=== PATIENT | female | born 1960 | race Caucasian/White ===

== ENCOUNTER → 2017-10-10 07:09 | Outpatient (CLI) | payer OTHER, SELFPAY ==
--- NOTE | 2017-10-10 07:18 | MRI_ITS ---
STUDY: MRI BRAIN WITH AND WITHOUT CONTRAST (ATTENTION INTERNAL AUDITORY CANALS - I.A.C.'s) REASON FOR EXAM: Female, 56 years old. unilateral tinnitus left side x 1 yr, nki. TECHNIQUE: Standardized multiplanar fat and water weighted pulse sequences were obtained. 6 ml of Gadavist contrast material was administered intravenously for the contrast portion of the examination. COMPARISON: None. FINDINGS: Normal bilateral temporal bones. Normal bilateral internal auditory canals. There is no demonstrated intracanalicular or cisternal vestibular schwannoma (acoustic neuroma). There is no enhancement of the bilateral VIIth or VIIIth cranial nerves. Normal bilateral cochlea, vestibules and semicircular canals. Normal size of the ventricles and extra-axial spaces for the patient's age. Normal white matter tracts of the supratentorial brain. Normal bilateral basal ganglia. Normal thalami. Normal flow voids within the major intracranial circulation suggesting patency by spin echo criteria. Normal venous enhancement. There is no enhancing intra-axial or extra-axial abnormality. There is no extra-axial fluid accumulation. Normal sella turcica, pituitary gland, infundibular stalk, optic chiasm and hypothalamus. Normal tectal plate and pineal gland. Normal midbrain, marcela and medulla. Normal cerebellum. Normal basal cisterns. No demonstrated orbital abnormality, within the constraints of a routine brain study. Normal visualized paranasal sinuses. Normal calvarium and skull base. Normal visualized soft tissue structures. Normal visualized upper cervical spine. MRI/Brain W/WO Contrast IMPRESSION: Normal unenhanced and enhanced MRI of the bilateral internal auditory canals (I.A.C's). Electronically Signed: Deborah Jurado MD at 8:00 EDT Tel , Service support ,
== END ==
PROVIDERS: Family Provider Family Medicine; PCP Family Medicine; Visit Provider Otolaryngology
DX: H93.19 Tinnitus, unspecified ear (principal)
CPT/HCPCS: 70553; A9585

== ENCOUNTER → 2017-10-18 09:01 | Outpatient (CLI) | payer OTHER, SELFPAY ==
--- NOTE | 2017-10-18 09:04 | EKG12_ITS ---
Test Reason : PRE OP Blood Pressure : / mmHG Vent. Rate : 061 BPM Atrial Rate : 061 BPM P-R Int : 164 ms QRS Dur : 080 ms QT Int : 422 ms P-R-T Axes : 036 049 045 degrees QTc Int : 424 ms Normal sinus rhythm Normal ECG Confirmed by MOIZ PARMAR MD ([id number]), health editor BRYN RAYA ([id number]) on 10/19/2017 1:12:56 PM Referred By: ELENA Confirmed By:MOIZ PARMAR MD
== END ==
PROVIDERS: Family Provider Family Medicine; PCP Family Medicine; Visit Provider Surgery
DX: I87.2 Venous insufficiency (chronic) (peripheral) (principal); I83.12 Varicose veins of left lower extremity with inflammation; M79.662 Pain in left lower leg; Z01.810 Encounter for preprocedural cardiovascular examination
CPT/HCPCS: 93005

== ENCOUNTER → 2017-10-18 09:19 | Outpatient (CLI) | payer OTHER, SELFPAY ==
[2017-10-18 09:53] LABS: Absolute Lymphocyte Count 2.26 X10^3/ul (0.83-4.51); Absolute Neutrophil Count 2.3 X10^3/uL (2.0-7.7); Basophil# 0.02 X10^3/uL; Basophil% 0.4 % (0-1); Eosinophil# 0.24 X10^3/uL; Eosinophils% 4.5 % (0-5); Hemoglobin 14.6 g/dl (12.0-15.0); Lymphocyte # 2.26 X10^3/ul (4.0); Lymphocyte % 42.2 % (19-41); Mean Corp Hgb Conc 32.4 g/gl (32-36); Mean Corpuscular Hgb 31.1 pg (27.0-32.0); Mean Corpuscular Volume 95.7 fL (81-99); Mean Platelet Vol. 9.9 fl (6.2-12.0); Monocyte# 0.53 X10^3/uL; Monocyte% 9.9 % (0-10); Neutrophil % 42.8 % (47-70); Platelet Count 232 K/mm3 (150-450); RBC Distribution Width SD 41.1 fl (35.1-43.9); White Blood Count 5.4 K/mm3 (4.4-11.0)
[2017-10-18 10:00] LABS: POSITIVE COUNT NO; POSITIVE DIFFERENTIAL NO; POSITIVE MORPHOLOGY NO
[2017-10-18 10:27] LABS: Anion Gap 3 (5-15); BUN 13 mg/dL (7-18); BUN/Creat Ratio 17.2 RATIO (10-20); Calcium,Total 9.4 mg/dL (8.5-10.1); Chloride 105 mmol/L (98-107); Creatinine, Serum 0.75 mg/dL (0.55-1.02); EST Glomerular Filtration Rate 84 mL/min (>60); Est Glom Filt Rate - Afr Amer 102 mL/min (>60); Glucose 83 mg/dL (74-106); Potassium 3.9 mmol/L (3.5-5.1); Sodium Level 140 mmol/L (136-145)
== END ==
PROVIDERS: Family Provider Family Medicine; PCP Family Medicine; Visit Provider Surgery
DX: I87.2 Venous insufficiency (chronic) (peripheral) (principal); M79.662 Pain in left lower leg; Z01.812 Encounter for preprocedural laboratory examination; I83.12 Varicose veins of left lower extremity with inflammation
CPT/HCPCS: 36415; 80048; 85025

== ENCOUNTER 2020-02-26 05:54 | Day surgery (SDC) | payer OTHER, SELFPAY ==
--- NOTE | 2020-02-18 12:15 | EKG12_ITS ---
Test Reason : PRE-OP Blood Pressure : / mmHG Vent. Rate : 056 BPM Atrial Rate : 056 BPM P-R Int : 166 ms QRS Dur : 078 ms QT Int : 418 ms P-R-T Axes : 023 049 052 degrees QTc Int : 403 ms Sinus bradycardia Otherwise normal ECG Confirmed by GHULAM PARISH, MOIZ ([id number]), editor & co founder RONALD BURNHAM ([id number]) on 02/23/2020 1:58:20 PM Referred By: Yadira Kang Confirmed By:MOIZ PARMAR MD
[2020-02-18 12:30] LABS: Hematocrit 43.8 % (37-47); Mean Corpuscular Hgb 30.6 pg (27.0-32.0); Mean Corpuscular Volume 95.6 fL (81-99); Mean Platelet Vol. 9.6 fl (6.2-12.0); Platelet Count 253 K/mm3 (150-450); Red Blood Count 4.58 M/mm3 (4.2-5.4); White Blood Count 6.1 K/mm3 (4.4-11.0)
[2020-02-18 13:08] LABS: Anion Gap 3 (5-15); BUN 13 mg/dL (7-18); BUN/Creat Ratio 17.8 RATIO (10-20); Calcium,Total 9.2 mg/dL (8.5-10.1); Chloride 106 mmol/L (98-107); Creatinine, Serum 0.73 mg/dL (0.55-1.02); EST Glomerular Filtration Rate 87 mL/min (>60); Est Glom Filt Rate - Afr Amer 105 mL/min (>60); Glucose 83 mg/dL (74-106); Potassium 3.7 mmol/L (3.5-5.1); Sodium Level 139 mmol/L (136-145)
--- NOTE | 2020-02-24 10:21 | PCM.HP.BLA ---
History and Physical Date of Admission: 02/26/20 Expand AllCollapse All Hide copied text Micheline for details Huong Song is a 59 year old female who presents for discussion regarding laparoscopic bilateral salpingo-oophorectomy, pelvic washings for a persistent ovarian cyst. Patient has seen Dr. Hurst previously and has been following a left ovarian cyst. Cyst is mostly simple however there are hyper echoic areas at the rim with a somewhat irregular border. There are no solid components or increased vascularity noted to the cyst. Patient is requesting surgical intervention at this time declines further expectant management with repeat ultrasounds. Patient currently denies any chest pain, shortness of breath or dizziness. ? PAST MEDICAL HISTORY PAST MEDICAL HISTORY Diagnosis Date ? Blood dyscrasia ? ? Cellular blue nevus ? ? DVT (deep venous thrombosis) ([facility]) 01/19/2014 ? R common femoral vein ? Essential hypertension, benign 07/15/2014 ? Factor V Leiden mutation ([facility]) 07/01/2014 ? heterozygous ? GERD (gastroesophageal reflux disease) ? ? Hiatal hernia ? ? Hypercholesteremia ? ? Hyperlipidemia LDL goal <130 09/18/2016 ? Inflamed seborrheic keratosis 12/14/2017 ? PMH - PAST MEDICAL HISTORY OF 12/2002 ? CERVICAL CYST ? Snoring ? ? PAST SURGICAL HISTORY PAST SURGICAL HISTORY Procedure Laterality Date ? COLONOSCOP W/ OR W/O [facility] SPEC ? 05/06/2012 ? Colonoscopy ? EGD W/O OR W/BRUSH/WASH ? 08/07/2014 ? EGD ? EGD W/O OR W/BRUSH/WASH ? 01/05/2015 ? EGD with vega ? LASER ABLATION THPY 1ST VEIN (AG) Left 10/24/2017 ? L saphenous vein ? LASER ABLATION THPY 2+ VEINS (AG) ? 09/09/15,05/15/19 ? PAST SURGICAL HISTORY OF ? 10/2017 ? laser ablation of vein in left leg ? REMOVE TONSILS/ADENOIDS,12+ Y/O ? ? ? FAMILY HISTORY FAMILY HISTORY Problem Relation Age of Onset ? Diabetes Mother ? ? Heart Mother ? ? decreased from [place] ? Coronary Artery Disease Father ? ? Diabetes Father ? ? Stroke Paternal Grandfather ? ? other (obesity) Brother ? ? other (obesity) Brother ? ? Heart Brother ? ? other (Blood Clot) Maternal Uncle ? ? Blood Disease Brother ? ? Leiden Factor V ? SOCIAL HISTORY Social History ? Tobacco Use ? Smoking status: Never Smoker ? Smokeless tobacco: Never Used Substance Use Topics ? Alcohol use: Yes ? ? Comment: occasional ? Drug use: No ? CURRENT MEDICATIONS Current Outpatient Medications Medication Sig ? atorvastatin (LIPITOR) 20 mg tablet Take 1 tablet by mouth once daily. ? Hydrochlorothiazide 12.5 mg capsule Take 1 capsule by mouth once daily. ? diosmin complex no.1 (VASCULERA ORAL) Take by mouth. ? COQ10, UBIQUINOL, ORAL Take by mouth. ? OMEGA-3 FATTY ACIDS (FISH OIL CONCENTRATE ORAL) Take by mouth once daily. ? aspirin, enteric coated (ASPIRIN, ENTERIC COATED) 81 mg EC tablet Take 81 mg by mouth once daily. ? multivitamin ORAL Tab with calcium (450mg), iron, and zinc. one tab daily ? ibuprofen (MOTRIN) 600 mg tablet Take 1 tablet by mouth every 6 hours as needed. ? simethicone, chewable (MYLICON) 80 mg chewable tablet Take 1 tablet by mouth every 6 hours as needed. ? lisinopril (ZESTRIL, PRINIVIL) 10 mg tablet Take 1 tablet by mouth once daily. (Patient not taking: Reported on 11/13/2019 ) ? 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 No current facility-administered medications for this visit. ? Allergies As of Date: 02/11/2020 (No Known Allergies) Fully Assessed 02/11/2020 ? ? REVIEW OF SYSTEMS Abdomen: no pain Bladder: no dysuria.. Expanded ROS: GENERAL: Negative for fever Allergies and current medication updated:Yes ? EXAM: BP 142/82 Ht 5' 5 (1.65m) Wt 150 lb (68.0kg) LMP 01/22/2014 BMI 24.96 kg/(m^2). GENERAL: pleasant, female in no apparent distress HEENT: Normocephalic and atraumatic NECK: full range of motion DERMATOLOGY: Normal, without lesions, non-icteric and non-hirsute CARDIAC: Regular rate and rhythm CHEST: Clear to auscultation Normal inspiratory effort NEURO: alert and oriented x3,exam grossly non-focal EXTREMITIES: normal ? ASSESSMENT AND PLAN: Encounter Diagnosis ? ? ICD-10-CM ? 1. Ovarian cyst, left N83.202 ? ? 2. Reviewed Lap BSO and Pelvic washing in detail with patient and she would like to proceed. 3. Pt has been counseled on risks/benefits and alternatives of surgery including but not limited to anesthesia, bleeding, infection, injury to pelvic structures including bowel, bladder, ureters and vessels. Pt wishes to proceed with surgery at this time. 4. POST op meds given 5. Reviewed h/o DVT - h/o Factor V Leiden mutation- will give Lovenox prophylactic in pre op. ? ? Yadira Kang MD ? ?
[2020-02-26] VITALS (9 sets, daily range): BP systolic 114–137; BP diastolic 63–85; PULSE 53–77; RESP 12–100; TEMP 36.5–36.7; O2SAT 12–100; BMI 24.5
[2020-02-26] MEDS: Enoxaparin 40 MG/0.4 ML Syringe SC (06:27)
[2020-02-26] MEDS: Lactated Ringers 1,000 ML 100 ML IV ×2 (06:27→08:30)
--- NOTE | 2020-02-26 07:30 | FLU_PTH ---
PATIENT: SONA SON LOC: [facility] U#:[id number] AGE/SX: 59/F ROOM: RE02/26/[address]: Dr. Yadira Kang, MDDOB: 1960 BED: DIS: 02/26/2020 SPEC #: [id number] RECD: 02/26/20 09:56 STATUS: MARC EDIS #: [id number] JUAN FRANCISCO: 02/26/20 07:[address]: Yadira Kang DEPT: CYTOLOGY RECD BY: Broderick Ochoa ENTERED: 02/26/20 12:31 SP TYPE: Fluid OTHR DR: Dr. Robert Bojorquez III, MD Tissues: Pelvis, NOS Procedures: Special Stain Group II Surgery Specimen Level IV Cytospin Fluid HEADER OPERATION: Laparoscopic salpingo-oophorectomy, pelvic washings PRE-OP DIAGNOSIS: Left ovarian cyst N83.202 TISSUE SUBMITTED: Pelvic washings DIAGNOSIS CYTOLOGY Pelvic washings (cytospin and cell block): Negative for malignant cells. 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 CYTOLOGY STUDY Slides are reviewed. CYTOLOGY GROSS Received is 27 ml of colorless hazy fluid labeled with the patient's name and and designated per the requisition as pelvic washings. Submitted for cytology preparation including cell block. / karina 02/26/20 TC:5 CPT: 82920, 08424
--- NOTE | 2020-02-26 07:30 | OV_PTH ---
PATIENT: SONA SON LOC: [facility] U#:[id number] AGE/SX: 59/F ROOM: RE02/26/[address]: Dr. Yadira Kang, MDDOB: 1960 BED: DIS: 02/26/2020 SPEC #: [id number] RECD: 02/26/20 09:56 STATUS: MARC CONROYBryan #: [id number] JUAN FRANCISCO: 02/26/20 07:[address]: Yadira Kang DEPT: SURGICAL PATHOLOGY RECD BY: Broderick Ochoa ENTERED: 02/26/20 12:47 SP TYPE: OVARY OTHR DR: Dr. Robert Bojorquez III, MD Tissues: OVARIAN CYST Procedures: Decalcification bone/plaque Surgery Specimen Level IV Surgery Specimen Level V HEADER OPERATION: Laparoscopic salpingo-oophorectomy PRE-OP DIAGNOSIS: Left ovarian cyst N83.202 TISSUE SUBMITTED: Bilateral fallopian tubes and ovaries, left ovary with cyst MICROSCOPIC DIAGNOSIS Bilateral fallopian tubes and ovaries, left ovary with cyst: Left ovary - mature cystic teratoma, dermoid cyst (fragmented). Right ovary - no pathologic diagnosis. Bilateral fallopian tubes - no pathologic diagnosis. SJ:karina 02/27/20 MICROSCOPIC DESCRIPTION Slides are reviewed. GROSS DESCRIPTION Received in fixative is one container labeled with the patient's name and designated bilateral fallopian tubes and ovaries, left ovary with cyst. The specimen consists of bilateral fallopian tubes and ovaries. The left ovary is identified by the presence of cyst. The right fallopian tube measures 6 cm in length and 0.5 cm in diameter. The fimbrial end is identified. Sections reveal unremarkable cut surfaces. No tubo-ovarian adhesions are noted. The adjacent right ovary measures 2.5 x 1.5 x 1 cm. Sections reveal unremarkable cut surfaces. The left fallopian tube measures 5 cm in length and 0.5 cm in diameter. The fimbrial lend is identified. The left fallopian tube is slightly tortuous and twisted. Sections do not reveal any mass lesion. No tubo-ovarian adhesions are identified. Portion of left ovary is present adjacent to the left fallopian tube. Also present in the container are two detached pieces of cystic ovary. The portion of the ovary adjacent to the fallopian tube measures 4 x 2.5 x 2.5 cm. The detached pieces of cystic ovary measures 4.5 x 3.5 x 2 cm and 4 x 2 x 1 cm. The cystic ovary is filled with multiple hair and yellowish sebaceous material. A focal area of bone formation is also noted. Equity Research Analyst sections are submitted in six cassettes as follows: 1 - right fallopian tube and ovary, 2 - left fallopian tube, 3-6 - left ovary (cassette 6 contains the area of bone formation) after decalcification. / SJ:karina 02/26/20 TC:1 CPT: 28800, 03357, 45423
--- NOTE | 2020-02-26 08:47 | OP.PCM_ITS ---
Report of Operation Date of Procedure: 02/26/20 - start: 736, end time 855 Pre-Operative Diagnosis: Left ovarian cyst Post-Operative Diagnosis: same, Surgery/Procedure Performed:: laparoscopic bilateral salpingoophorectomy, lysis of adhesions, Pelvic washings Description of Surgical Findings:: left ovary and tube with significant adhesions to sigmoid colon and left pelvic side wall. ureter identified and general surgery called for intraop consult to evaluate adhesions to pelvic side wall- Dr. Valdes was available and helped to disect cyst off pelvic side wall, after removal he evaluated sigmoid colon and left pelvic side wall to ensure hemostasis and no injury. patent prosecution attorney: Óscar Taveras Type of Anesthesia:: General Special Medications: 0.5% marcaine Specimen's removed: bilateral fallopian tubes, ovaries, including left ovarian cyst, pelvic washings Drains: none Estimated Blood Loss (mL): 15 Fluids Replaced: 1100 Description of Procedure: Operative note: After informed consent was obtained patient was taken to the operating room she was placed in supine position she was given anesthesia. She was then placed in the [facility] and she was prepped and draped in normal sterile fashion. Bladder was drained prior to the start of procedure approximately 75cc of clear yellow urine was expelled. At this time attention was turned to the vaginal portion where weighted speculum placed at posterior fornix vagina sin gle-tooth tenaculum was used to gently grasp the internal the cervix. uterus was gently sounded to approximately 5cm. Uterine manipulator was placed without difficulty. Legs then placed in parallel with the abdomen the tenaculum and the weighted speculum were removed. 2 towel clamps were placed at umbilicus. After Marcaine was injected at umbilicus a small incision was made and a 5 mm trocar was placed under direct visualization. CO2 gas was used to insufflate the intra-abdominal cavity. Upon inspection left ovary with significant adhesions and tubal torsion to sigmoid colon and pelvic side wall. right ovary and tube appeared normal. At this time then the LLQ port was placed again Marcaine was injected small incision was made a knife and the 5 mm trocar was placed. this was repeated on right side and again in LUQ. At this time the left tube and ovary and cyst were evaluated gentle adhesio lysis was performed off of the sigmoid colon. The IP ligament was then able to be visualized and the IP ligament was coagulated and ligated. The ureter was identified on the left prior to adhesio lysis. Incidentally the cyst was ruptured at time of surgery and yellow fluid was appreciated with what appeared to be hair. Due to the significant adhesions to the pelvic sidewall general surgeon was asked to give intraoperative consult. Dr. Valdes agreed with decision to continue and scrubbed in to assist with dissection and amputation of the cyst off of the pelvic sidewall. During this time the umbilical incision was extended to a 10 mm port. Once the ovary cyst and tubes were successfully amputated they were placed in the Endo Catch bag, Evaluation of the left pelvic sidewall was done and copious irrigation was performed. Good hemostasis was appreciated. There was no apparent injury to the sigmoid colon. the Endocatch bag was removed with specimen. At this time then tubes were traced back to the fimbriated end on right. Ligasure was used to coagulate and ligate along IP ligament, uterovarian and the mesosalpynx. the Right tube and ovary were removed intact from umbilical 10mm port. Umbilical 10mm port was closed with 0-vicryl on UR6 needle. At this time procedure was deemed complete successful. The gas was desufflated on from the intra-abdominal cavity. The trochars were removed. Skin was closed using 4-0 Monocryl in a subcutaneous fashion. Dermabond glue was placed. Instrument lap and needle counts were correct ?2. The uterine manipulator was removed. Vaginal sweep was performed it was negative. There were no complications anticipated normal postoperative course for this patient. assist helped to manipulate ovaries/tubes and retract for good visualization intraop consult by dr. Valdes- assisted with amputation of cyst/ovary to pe lvic side wall. - Complications none - Admit VTE Documentation VTE Present on Admission: Yes VTE Mechan Device Prophylaxis: SCD's VTE Pharm Prophylaxis ordered?: Yes
[2020-02-26] MEDS: Bupivacaine Mpf 0.5% 30 ML VIAL (08:51)
--- NOTE | 2020-02-26 09:03 | DCINST_ITS ---
Discharge Diet: No Restrictions, - - Increase fluid intake for 48 hours. Discharge Activity: Return to Normal Activity, May Drive - when you are no longer taking narcotic pain medications., May Shower, May Take a Tub Bath - in 7 days., - - Ambulate often the next week after surgery. May resume sexual activity in: 2 weeks Lifting Restrictions: 20 Additional Activity Instructions:: Nothing in the vagina for the next 5 days. Call your doctor if your incision/area has: Continuous Slow Oozing, Sudden Increased Bleeding, Increased Pain/ Swelling, Increased Redness, Foul Smelling Discharge, Swelling at the incision site Call your doctor if you observe: Fever of 101 or Higher Cleanse incision/area with: - - you have skin glue- do not pick it off. You may shower, let soap and water run over incision sites Allergies/Adverse Reactions: Allergies No Known Allergies Allergy (Verified 02/26/20 06:16) Medications to take at Discharge Lisinopril [Zestril] 10 mg PO DAILY 01/05/15 Atorvastatin Calcium [Lipitor] 20 mg PO DAILY 02/17/20 Multivitamin with Minerals [Multiple Vitamin] 1 ea PO DAILY 02/17/20 Ubidecarenone [Coq-10] 100 mg PO DAILY 02/17/20 Vasculuera 630 mg PO LUNCH 02/17/20 hydroCHLOROthiazide [Hydrochlorothiazide] 12.5 mg PO DAILY 02/17/20 Primary Care Physician: Robert Bojorquez III, MD [Primary Care Provider] - Test Results: Test results from this visit will be discussed in further detail at your follow- up appointment, if applicable. Please Follow Up With: Yadira Kang MD When: in 2 weeks for post op check
[2020-02-26] MEDS: HYDROcodone Bitartrate/Apap 5/325 Tablet PO (11:13)
== END 2020-02-26 11:58 | disposition home or self-care (01) ==
LOC: SDC 05:55 → AC 05:56
PROVIDERS: PCP Family Medicine; Referring Provider Obstetrics & Gynecology; Visit Provider Obstetrics & Gynecology
PROC: (CPT 49084; principal; 2020-02-26 07:15)
DX: D39.12 Neoplasm of uncertain behavior of left ovary (principal); I10 Essential (primary) hypertension; D68.51 Activated protein C resistance; K21.9 Gastro-esophageal reflux disease without esophagitis; E78.5 Hyperlipidemia, unspecified; Z79.899 Other long term (current) drug therapy; Z79.82 Long term (current) use of aspirin; Z11.59 Encounter for screening for other viral diseases
CPT/HCPCS: 49084; 58661; 36415; 80048; 85027; 87635; 88108; 88305; 88307; 88311; 88313; 93005; 94799; J7120; J2405; U0003

== ENCOUNTER 2023-02-07 13:30 | Outpatient (RCR) | payer OTHER, SELFPAY ==
--- NOTE | 2023-01-23 16:52 | HP.PTEVAL ---
Patient's Visit Information Visit Information Visit Information: SONA SON is a 62 year old F referred to Physical Therapy by Dr. Boris Ashby MD with a diagnosis of vertigo. Date of Evaluation: 01/23/23 Physical Therapist: Haroon Sanz, DPT, OCS, CSCS Visit Plan Frequency: 1x/Week Duration: 4-6 Weeks Plan: weekly as helpful to 4-6 weeks as needed for progression of habituation /adaptation ex(doing stand VOR H 60 sec a6x/day and BD 8 reps daily currently) will likiely need head turns adn maybe nods next session. Recheck positional Subjective Subjective: Feels like she is rocking back and forth since cruise back in December 23. Sensation does not go away and is not improving. This is her first cruise. Feeling is intermittent, better driving, not bad at work sitting at desk, sitting is when she notices it the most, does not notice much in bed. Coming down steps makes her notice it alot, has to hold onto rail. No falls. feels like balance is off some days especially sitting up quickly. No spinning but described as walking or swaying. Lightheaded at times. 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 Not getting up on ladder, does most other things including hosework and running vaccuum. Hobbies include: house work. No regular exercises, walks friend one day per week but cancelled last week. one mile or so. Objective Objective: Walks into PT slowly but stable and I. Difficulty with VOR walking more than anything and symptomatic. steps require railing. cervicval aROM WFL and without pain. UE AROM without pain or problems. - B HD but R is symptomatic for 15 seconds 2x and treated with R gamaliel today. Oculomotor: nonystagmus with gaze or head shake but symptoms 20 seconds with head shake - skew eye deviation - ocular tilt - head thrust. no problem with saccades or pursuit. symptomatic with VOR H 30 sec for 20 seconds. Balance/Special Test Scores Functional Gait Assessment Score: 30 % Disability: 0 CATSIB Score (Max score 120 seconds): 98 Dizziness Score: 24 Goals Goal 1:: head turns 10x to side without symptoms Goal Time Frame: 2-4 Weeks Goal 2:: Patient feel 90% back to normal and manageable symptoms Goal Time Frame: 2-4 Weeks Goal 3:: DHI score 8 or less Goal Time Frame: 2-4 Weeks Goal 4:: relax in the evening without symptoms Goal Time Frame: 2-4 Weeks Rehabilitation Potential Physical Therapy Diagnosis: mal debarquement vs positional Rehabilitation Potential: Fair Anticipated Interventions Patient/Client Instruction: Educate patient on: Condition and Plan of Care For the Purpose of:: To improve nutrient delivery to tissue, To improve muscle performance and motor function and To increase tolerance to activity/condition/position Comment: adaptation and habituation ex as needed For the Purpose of:: To increase tolerance to activity/condition/position Text: Thank you for the opportunity to evaluate your patient. For Medicare and Medicare HMO plans, please review the plan of care and approve it. It will need to be FAXED BACK to us at [phone] for Medicare purposes. For Medicare only, by signing this I certify the plan of care. Please let me know if there are questions or concerns regarding this plan of care. Physician Signature: Date:
--- NOTE | 2023-02-07 13:47 | HP.PTDCSUM ---
Discharge Summary D/C summary: It has been my pleasure to treat SONA SON referred by Dr. Boris Ashby MD, with the diagnosis of vertigo for a total of 3 visit(s). Discharge Date: 02/07/23 Please see the following information for a summary of their discharge status. Subjective Subjective: These exercise may be more helpful than the other. Still has some rocking movements. Rocking comes and goes. some mornings woke up and felt normal. Slightly better. Overall Improvement % Improvement: 10 Objective Objective/Function: turns :30 seconds 3/10 ec and 2/10 eo. nods 5/10 x 20 seconds. VOR is no problem FGA is same and good. - B hallpike nicol. Goals Goal 1:: head turns 10x to side without symptoms Goal Progress: Progressing Goal 2:: Patient feel 90% back to normal and manageable symptoms Goal Progress: 10% Goal 3:: DHI score 8 or less Goal Progress: Not Progressing Goal 4:: relax in the evening without symptoms Goal Progress: Progressing Plan Plan: d/c D/C Information Discharge Comments: Still classic mal debarquement possibly slowly improving and no balance problems. d/c sentence: If there are questions or concerns regarding this patient's physical therapy, please feel free to call me at [phone]. Thank you for the referral of this patient. Sincerely, Haroon Sanz, DPT, OCS, CSCS Balance/Gait/Functional tests Balance/Special Test Scores Functional Gait Assessment Score: 30 % Disability: 0 CATSIB Score (Max score 120 seconds): 98 Dizziness Score: 22
== END 2023-02-07 19:00 | disposition home or self-care (01) ==
LOC: PT 13:30
PROVIDERS: Referring Provider Family Medicine; Visit Provider Family Medicine
DX: R42 Dizziness and giddiness (principal)
CPT/HCPCS: 97110; 97161; 97164; 97530